=== PATIENT | female | born 1950 | race Caucasian/White ===

== ENCOUNTER → 2020-06-05 | Outpatient (CLI) | payer MEDICARE, OTHER ==
[~2020-06-05] MED LIST: AMLODIPINE BESY10 MG PO; ANTIVERT 25MG T25 MG PO; ASPIRIN81 MG PO; CITALOPRAM HBR10 MG PO; CRESTOR20 MG PO; DILTIAZEM 24HR120 M1 PO; TEGRETOL 200 M200 MG PO; TENORMIN 25 MG25 MG PO
== END ==
LOC: KOH-I 15:02
DX: R07.9 Chest pain, unspecified (principal); M51.16 Intervertebral disc disorders with radiculopathy, lumbar region; M41.9 Scoliosis, unspecified
CPT/HCPCS: 71046; 72100

== ENCOUNTER → 2020-07-01 | Outpatient (CLI) | payer MEDICARE, OTHER | LOC: CT 11:16 | DX: I65.21 Occlusion and stenosis of right carotid artery (principal); M47.812 Spondylosis without myelopathy or radiculopathy, cervical region; M48.02 Spinal stenosis, cervical region; R91.1 Solitary pulmonary nodule; Z98.890 Other specified postprocedural states | CPT/HCPCS: 70498; Q9967 ==

== ENCOUNTER → 2020-08-01 | Outpatient (CLI) | payer MEDICARE, OTHER | LOC: HEART 5 07:30 | DX: R07.9 Chest pain, unspecified (principal); R06.02 Shortness of breath | CPT/HCPCS: 78452; A9502; J2785 ==

== ENCOUNTER → 2020-08-05 | Outpatient (CLI) | payer MEDICARE, OTHER | LOC: ECHO 10:39 | DX: R06.02 Shortness of breath (principal); I07.1 Rheumatic tricuspid insufficiency; I34.0 Nonrheumatic mitral (valve) insufficiency | CPT/HCPCS: ECHO; 93306 ==

== ENCOUNTER 2020-08-11 11:58 | Emergency (ER) | payer MEDICARE, OTHER ==
[~2020-08-11] VITALS: Ht 165.1 cm; Wt 68.0 kg
[~2020-08-11 11:58] MED LIST changes: -AMLODIPINE BESY10 MG PO; -CITALOPRAM HBR10 MG PO; -CRESTOR20 MG PO; -DILTIAZEM 24HR120 M1 PO; -TEGRETOL 200 M200 MG PO; -TENORMIN 25 MG25 MG PO
[2020-08-11 13:06] LABS: RED BLOOD COUNT 4.23 M/UL (4.00-5.10); WHITE BLOOD COUNT 7.7 K/UL (4.5-11.0)
== END 2020-08-11 17:59 | disposition home or self-care (01) ==
LOC: ER1 11:58
PROVIDERS: Physician Assistant Medical
DX: R07.89 Other chest pain (principal); K59.00 Constipation, unspecified; R51.9 Headache, unspecified; E78.5 Hyperlipidemia, unspecified; I10 Essential (primary) hypertension; Z86.73 Personal history of transient ischemic attack (TIA), and cerebral infarction without residual deficits; Z90.49 Acquired absence of other specified parts of digestive tract; Z90.89 Acquired absence of other organs; Z90.710 Acquired absence of both cervix and uterus; Z88.2 Allergy status to sulfonamides; Z88.8 Allergy status to other drugs, medicaments and biological substances
CPT/HCPCS: 70496; 71045; 80053; 82550; 82553; 83690; 83874; 83880; 84484; 85025; 85610; 85652; 86140; 93005; 96374; 96375; 96376; 99285; J2270; J2405; Q9967

== ENCOUNTER 2020-11-14 15:33 | Observation (INO) | payer MEDICARE, OTHER ==
[~2020-11-14] VITALS: Ht 165.1 cm; Wt 82.8 kg
[2020-11-14 16:21] LABS: HEMOGLOBIN 13.8 gm/dl (12.3-15.3); RED BLOOD COUNT 4.52 M/UL (4.00-5.10); WHITE BLOOD COUNT 7.9 K/UL (4.5-11.0)
[2020-11-14 16:54] LABS: BUN/CREATININE RATIO 21 (0-10)
[2020-11-15] MEDS ORDERED: DILTIAZEM 24HR120 M1 PO (01:52)
[2020-11-15] MEDS ORDERED: CITALOPRAM HBR10 MG PO (01:53)
[2020-11-15] MEDS ORDERED: CRESTOR20 MG PO (01:53)
[2020-11-15] MEDS ORDERED: TEGRETOL 200 M200 MG PO (01:54)
[2020-11-15] MEDS ORDERED: TENORMIN 25 MG25 MG PO (01:55)
[2020-11-15] MEDS ORDERED: AMLODIPINE BESY10 MG PO (01:55)
[2020-11-15 06:00] LABS: RED BLOOD COUNT 4.29 M/UL (4.00-5.10); WHITE BLOOD COUNT 6.8 K/UL (4.5-11.0)
--- NOTE | 2020-11-15 15:42 | NUR ---
PT WAS INFORMED THAT THE MRI MACHINE WAS BROKEN AND SHE TOLD ME SHE WAS GOING TO GO HOME NO MATTER WHAT. CALLED AND TOLD HIM THAT THE MACHINE WAS GOING TO BE BROKEN UNTIL WEDNESDAY. HE TOLD ME TO SIGN HER OUT AMA DUE TO THE FACT THAT WE WILL NOT HAVE A MRI TO RULE OUT THE STROKE. I TALKED TO THE PATIENT AND EXPLAINED WHAT AMA INCLUDED AND ALL THE RISK IF SHE WENT HOME AGAINST MEDICAL ADVICE. PTS DAUGHTER WAS WITH HER AND UNDERSTOOD THE RISK. SHE STATED THAT THE PT WAS GOING TO STAY WITH HER TONIGHT, AND THAT SHE WAS GOING TO KEEP AN EYE ON HER. PT THEN SIGNED THE AMA FORM AND WAS TRANSFERRED OUT BY WHEELCHAIR BY THE TECH.
== END 2020-11-15 15:37 | disposition left against medical advice (07) ==
LOC: ER1 15:33 → CDU 19:36 → M/S 23:29 → PROG CARE 11-15 00:49
PROVIDERS: Physician Assistant; ADMIT Internal Medicine
DX: R53.1 Weakness (principal); R47.81 Slurred speech; T42.1X5A Adverse effect of iminostilbenes, initial encounter; I25.10 Atherosclerotic heart disease of native coronary artery without angina pectoris; I69.354 Hemiplegia and hemiparesis following cerebral infarction affecting left non-dominant side; G50.0 Trigeminal neuralgia; I10 Essential (primary) hypertension; E78.5 Hyperlipidemia, unspecified; Z20.822 Contact with and (suspected) exposure to COVID-19; Z53.29 Procedure and treatment not carried out because of patient's decision for other reasons; Z98.890 Other specified postprocedural states; Z79.82 Long term (current) use of aspirin; Z79.899 Other long term (current) drug therapy
CPT/HCPCS: 36415; 70450; 70496; 70498; 71045; 80053; 80156; 80307; 82550; 82553; 83735; 83874; 84443; 84484; 85025; 92610; 93005; 96372; 99285; G0378; J1650; Q9967; U0002

== ENCOUNTER → 2022-01-23 | Outpatient (CLI) | payer MEDICARE, OTHER ==
[~2022-01-23] MED LIST changes: +AMLODIPINE BESY10 MG PO; +CITALOPRAM HBR10 MG PO; +CRESTOR20 MG PO; +DILTIAZEM 24HR120 M1 PO; +TEGRETOL 200 M200 MG PO; +TENORMIN 25 MG25 MG PO
== END ==
LOC: KOH-I 12:27
DX: M25.562 Pain in left knee (principal); M25.462 Effusion, left knee
CPT/HCPCS: 73562